=== PATIENT | female | born 1975 | race Caucasian/White ===

== ENCOUNTER 2019-04-26 15:08 | Emergency (ER) | payer MEDICARE ==
[2019-04-26 17:01] LABS: #Eosinphils 0.3 thou/uL (0.0-0.7); #Lymphocytes 2.4 thou/uL (1.20-3.40); #Monocytes 0.8 thou/uL (0.11-0.59); #Neutrophils 4.9 thou/uL (1.40-6.50); %Basophils 0.5 % (0.0-1.0); %Eosinophils 3.6 % (0.0-10.0); %Lymphocytes 28.2 % (21.0-51.0); %Monocytes 9.1 % (0.0-10.0); %Neutrophils 58.7 % (42.0-75.0); Hemoglobin 11.1 g/dL (12.0-16.0); Mean Corpuscular HGB CONC 30.8 g/dL (32.0-36.0); Mean Corpuscular Hemoglobin 19.2 pg (27.0-31.0); Mean Corpuscular Volume 62.4 fL (78.0-98.0); Mean Platelet Volume 7.1 fL (7.4-10.4); Platelet Count 553 thou/uL (130-400); RBC Distribution Width 15.2 % (11.5-14.5); Red Blood Cell (RBC) Count 5.76 mill/uL (4.20-5.40); White Blood Cell (WBC) Count 8.4 thou/uL (4.8-10.8)
[2019-04-26 17:23] LABS: ALT (SGPT) 23 U/L (8-55); AST (SGOT) 18 U/L (5-34); Albumin 3.7 g/dL (3.5-5.0); Alkaline Phosphatase 117 U/L (40-110); Anion Gap 9 mmol/L (10-20); BUN (Urea Nitrogen) 11 mg/dL (7.0-18.7); Bilirubin, Total 0.5 mg/dL (0.2-1.2); CRP (Inflammatory) 2.66 mg/dL (= or < 0.5); Calc. Creatinine Clearance 0 mL/min (70-130); Calcium 9.6 mg/dL (7.8-10.44); Carbon Dioxide 31 mmol/L (22-29); Chloride 103 mmol/L (98-107); Estimated GFR-MDRD 82; Globulin 4.1 g/dL (2.4-3.5); Glucose 96 mg/dL (70-105); Potassium 4.2 mmol/L (3.5-5.1); Protein, Total 7.8 g/dL (6.0-8.3); Sodium 139 mmol/L (136-145)
--- NOTE | 2019-04-26 17:24 | RAD ---
TWO VIEWS OF THE LEFT KNEE: 04/26/19 COMPARISON: 04/08/19. HISTORY: Left knee replacement with drainage and swelling from the incision site for four to five days. FINDINGS: Three views of the left knee shows the patient to be status post left knee arthroplasty without perih ardware lucency or fracture. The patient may also be status post ACL repair. Prepatellar soft tissue swelling is seen. No osseous erosions are seen No knee effusion is seen. IMPRESSION: Soft tissue swelling surrounding the patient's left knee prosthesis. POS: C
== END 2019-04-26 19:10 | disposition home or self-care (01) ==
LOC: ERS 15:08
DX: G89.18 Other acute postprocedural pain (principal); M25.562 Pain in left knee
CPT/HCPCS: 36415; 80053; 85025; 85652; 86140

== ENCOUNTER 2022-02-15 14:16 | Outpatient (CLI) | payer MEDICARE | END 2022-02-15 14:17 | disposition home or self-care (01) | LOC: SCSMRI 14:16 | PROVIDERS: ATTEND Physician Assistant | DX: M47.26 Other spondylosis with radiculopathy, lumbar region (principal) | CPT/HCPCS: 72148 ==

== ENCOUNTER 2022-03-31 13:36 | Outpatient (CLI) | payer MEDICARE ==
[2022-03-31 15:48] LABS: INR-International Normal Ratio 0.9; Prothrombin Time 10.3 sec (9.5-12.1)
[2022-03-31 15:58] LABS: Anion Gap 13 mmol/L (10-20); BUN (Urea Nitrogen) 12 mg/dL (7.0-18.7); Calc. Creatinine Clearance 0 mL/min (70-130); Calcium 8.7 mg/dL (7.8-10.44); Carbon Dioxide 28 mmol/L (22-29); Chloride 106 mmol/L (98-107); Estimated GFR 88; Glucose 134 mg/dL (70-105); Potassium 4.6 mmol/L (3.5-5.1); Sodium 142 mmol/L (136-145)
[2022-03-31 16:02] LABS: #Basophils 0.1 10x3/uL (0.0-0.2); #Eosinphils 0.2 10x3/uL (0.0-0.5); #Monocytes 0.6 10x3/uL (0.0-1.1); #Neutrophils 5.2 10x3/uL (1.5-8.4); %Basophils 0.8 % (0.0-2.0); %Eosinophils 2.4 % (0.0-6.0); %Lymphocytes 28.6 % (18.0-47.0); %Monocytes 7.3 % (0.0-10.0); %Neutrophils 60.7 % (40.0-75.0); Hemoglobin 11.7 g/dL (12.0-15.5); Mean Corpuscular HGB CONC 30.2 g/dL (32.0-36.0); Mean Corpuscular Volume 63.1 fl (81.6-98.3); Platelet Count 509 10x3/uL (150-450); RBC Distribution Width 18.2 % (11.5-14.5); Red Blood Cell (RBC) Count 6.15 10x6/uL (3.90-5.03); White Blood Cell (WBC) Count 8.6 10x3/uL (3.5-10.5)
[2022-03-31 17:40] LABS: Hypochromia SLIGHT = 6-15 cells (100X) (0-5/hpf); Microcytosis MODERATE=15-30 cells (100X) (0-5/hpf)
[2022-03-31 17:41] LABS: Tear Drops SLIGHT = 2-5 cells (100X) (0-1/hpf)
[2022-03-31 17:42] LABS: Ovalocytes SLIGHT = 2-5 cells (100X) (0-1/hpf)
[2022-03-31 17:47] LABS: Reflex for Review?? YES
== END 2022-03-31 13:37 | disposition home or self-care (01) ==
LOC: NM 13:36 → LABBT 13:37
PROVIDERS: ATTEND Orthopaedic Surgery
DX: Z01.818 Encounter for other preprocedural examination (principal); M17.11 Unilateral primary osteoarthritis, right knee
CPT/HCPCS: 80048; 85025; 85060; 85610; 87081; 93005; 93010

== ENCOUNTER 2022-04-04 05:31 | Observation (INO) | payer MEDICARE ==
[2022-04-03 12:14] VITALS: BMI 51.5
[2022-04-04] MEDS ORDERED: Tranexamic Acid 1,000 MG/10 ML VIAL ONE ×2 (06:01→09:20)
[2022-04-04] MEDS ORDERED: Sodium Chloride 0.9% 100 ML ONE ×2 (06:01→06:56)
[2022-04-04] MEDS ORDERED: fentaNYL PF 100 MCG/2 ML SYRINGE ONE ×3 (06:03→09:16)
[2022-04-04] MEDS ORDERED: VANCOMYCIN 2 GRAM/500 ML BAG 2 GM in Premix Bag 1 BAG IVPB SCH (06:15)
[2022-04-04] MEDS ORDERED: Bupivacaine PF 0.5% 30 ML VIAL ONE (06:23)
[2022-04-04] MEDS ORDERED: Midazolam HCl 2 mg/2 ml Vial ONE (06:44)
[2022-04-04] MEDS ORDERED: CEFAZOLIN 2 GM VIAL ONE (06:56)
[2022-04-04] MEDS ORDERED: HYDROcodone/Acetaminophen 10/325 mg Tablet PO PRN ×3 (06:59→09:00)
[2022-04-04] MEDS ORDERED: Acetaminophen 325 MG TAB PO PRN (06:59)
[2022-04-04] MEDS ORDERED: Promethazine HCl 25 MG/ML VIAL IM PRN ×2 (06:59→09:00)
[2022-04-04] MEDS ORDERED: Zolpidem Tartrate 5 MG TAB PO PRN ×2 (06:59→09:00)
[2022-04-04] MEDS ORDERED: Fentanyl 100 MCG/2 ML VIAL SLOW IVP PRN ×2 (06:59)
[2022-04-04] MEDS ORDERED: Ondansetron PF 4 MG/2 ML Vial IVP PRN ×2 (06:59→09:00)
[2022-04-04] MEDS ORDERED: diphenhydrAMINE 25 MG CAP PO PRN (06:59)
[2022-04-04] MEDS ORDERED: Rocuronium Bromide 10 MG/ML (10ML VIAL) ONE (07:00)
[2022-04-04] MEDS ORDERED: Glycopyrrolate 0.2 MG/ML 5 ML SYRINGE ONE (07:00)
[2022-04-04] MEDS ORDERED: NEOSTIGMINE 3 MG/3 ML SYR 3 MG/3 ML SYRINGE ONE (07:00)
[2022-04-04] MEDS ORDERED: PROPOFOL 200 MG/20 ML VIAL ONE (07:00)
[2022-04-04] MEDS ORDERED: Ondansetron ORAL SOLN. 4 MG/5 ML UDCUP ONE (07:00)
[2022-04-04] MEDS ORDERED: Dexamethasone 20 MG/5 ML VIAL ONE (07:00)
[2022-04-04] MEDS ORDERED: ePHEDrine 50 MG/ML VIAL ONE (07:00)
[2022-04-04] MEDS ORDERED: Ropivacaine 0.5% HCl/PF (150 MG/30 ML VIAL) ONE ×2 (07:00→08:10)
[2022-04-04] MEDS ORDERED: Ketorolac Tromethamine 30 MG/ML VIAL ONE (07:00)
[2022-04-04] MEDS ORDERED: Nitroglycerin 0.4 MG TAB (25 Tab Bottle) SL PRN (07:00)
[2022-04-04] MEDS ORDERED: Fentanyl 100 MCG/2 ML VIAL IV PRN (08:57)
[2022-04-04] MEDS ORDERED: traMADol HCl 50 MG TAB PO PRN ×2 (09:00)
[2022-04-04] MEDS ORDERED: Ropivacaine 0.2% 550 ML 550 ML NERVE BLCK SCH (09:00)
[2022-04-04] MEDS ORDERED: Dexamethasone 10 MG in Sodium Chloride 0.9% 50 ML IVPB SCH (09:00)
[2022-04-04] MEDS ORDERED: FENTANYL 50 MCG/ML 1 ML VIAL ONE (11:56)
[2022-04-04] MEDS: Sodium Chloride 0.9% 1,000 ML IV SCH ×2 (14:36→17:18)
[2022-04-04] MEDS: Multivitamin W/ Minerals 1 TAB PO SCH (14:37)
[2022-04-04] MEDS: Ferrous Gluconate 324 MG TAB PO SCH ×2 (14:37→21:32)
[2022-04-04] MEDS: Senokot S 8.6-50 MG TAB PO SCH ×2 (14:37→21:31)
[2022-04-04] MEDS: Aspirin 81 mg Enteric Coated Tablet PO SCH ×2 (14:37→21:34)
[2022-04-04] MEDS: Gabapentin 300 MG CAP PO SCH ×3 (14:37→21:29)
[2022-04-04] MEDS: Baclofen 10 MG TAB PO SCH ×2 (14:37→21:31)
[2022-04-04] MEDS: Ketorolac Tromethamine 30 MG/ML VIAL IVP SCH ×6 (14:37→23:50)
[2022-04-04] MEDS: Meloxicam 15 MG TAB PO SCH (14:37)
[2022-04-04] MEDS: Dexamethasone 10 MG/ML VIAL IVPB SCH (14:37)
[2022-04-04] MEDS: CEFAZOLIN 2 GM in Sodium Chloride 0.9% 100 ML IVPB SCH ×2 (15:56→23:51)
[2022-04-04] MEDS: HYDROcodone/Acetaminophen 10/325 mg Tablet PO PRN ×2 (15:56→22:46)
[2022-04-05] MEDS: Sodium Chloride 0.9% 1,000 ML IV SCH (04:25)
[2022-04-05] MEDS: Ketorolac Tromethamine 30 MG/ML VIAL IVP SCH (05:18)
[2022-04-05] MEDS ORDERED: Levothyroxine 150 MCG TAB PO SCH (06:00)
[2022-04-05 08:03] LABS: Hemoglobin 10.5 g/dL (12.0-16.0); Mean Corpuscular HGB CONC 30.1 g/dL (32.0-36.0); Mean Corpuscular Hemoglobin 19.6 pg (27.0-31.0); Mean Corpuscular Volume 65.3 fl (78.0-98.0); Mean Platelet Volume 7.2 fL (7.4-10.4); Platelet Count 389 10x3/uL (130-400); RBC Distribution Width 14.9 % (11.5-14.5); Red Blood Cell (RBC) Count 5.36 mill/uL (4.20-5.40); White Blood Cell (WBC) Count 13.9 10x3/uL (4.8-10.8)
[2022-04-05] MEDS: Aspirin 81 mg Enteric Coated Tablet PO SCH (08:54)
[2022-04-05] MEDS: Multivitamin W/ Minerals 1 TAB PO SCH (08:54)
[2022-04-05] MEDS: Meloxicam 15 MG TAB PO SCH (08:55)
[2022-04-05] MEDS: Gabapentin 300 MG CAP PO SCH (08:56)
[2022-04-05] MEDS: Ferrous Gluconate 324 MG TAB PO SCH (08:57)
[2022-04-05] MEDS: Baclofen 10 MG TAB PO SCH (08:57)
[2022-04-05] MEDS: Senokot S 8.6-50 MG TAB PO SCH (08:57)
[2022-04-05] MEDS: HYDROcodone/Acetaminophen 10/325 mg Tablet PO PRN (08:59)
[2022-04-05 09:22] VITALS: BP 106/70; TEMP 97.8
[2022-04-05] MEDS: Dexamethasone 10 MG/ML VIAL IVPB SCH (10:03)
== END 2022-04-05 10:00 | disposition home or self-care (01) ==
LOC: SDC 05:31 → SURG B 14:06
PROVIDERS: ADMIT Orthopaedic Surgery; ATTEND Orthopaedic Surgery
PROC: 0SRC0J9 Replacement of Right Knee Joint with Synthetic Substitute, Cemented, Open Approach (ICD-10-PCS; principal; 2022-04-04)
DX: M17.11 Unilateral primary osteoarthritis, right knee (principal); E89.0 Postprocedural hypothyroidism; D56.3 Thalassemia minor; Z79.1 Long term (current) use of non-steroidal anti-inflammatories (NSAID); Z79.890 Hormone replacement therapy; Z79.899 Other long term (current) drug therapy; Z96.652 Presence of left artificial knee joint
CPT/HCPCS: 20985; 27447; 73560; 85027; 97110 ×2; 97116 ×2; 97530 ×2; A4306; C1713; C1776; J3010; J3370; 36415; 96375; 96376; G0378; J1100; J1885; J2250; J2704; J2795; J3490; Q0162; S0020

== ENCOUNTER 2022-04-14 10:55 | Emergency (ER) | payer MEDICARE ==
[2022-04-14] MEDS ORDERED: Ketorolac Tromethamine 30 MG/ML VIAL ONE (11:52)
[2022-04-14] MEDS ORDERED: Ondansetron PF 4 MG/2 ML Vial ONE (11:52)
[2022-04-14] MEDS ORDERED: Morphine 4 MG/ML VIAL ONE (11:52)
[2022-04-14] MEDS ORDERED: cefTRIAXone\\ROCEPHIN 2 GM VIAL ONE (11:52)
[2022-04-14 12:10] LABS: #Eosinphils 0.2 thou/uL (0.0-0.7); #Monocytes 0.6 thou/uL (0.11-0.59); #Neutrophils 4.9 thou/uL (1.40-6.50); %Basophils 0.3 % (0.0-1.0); %Monocytes 7.7 % (0.0-10.0); %Neutrophils 63.1 % (42.0-75.0); Hemoglobin 11.1 g/dL (12.0-16.0); Mean Corpuscular HGB CONC 30.8 g/dL (32.0-36.0); Mean Corpuscular Hemoglobin 19.8 pg (27.0-31.0); Mean Corpuscular Volume 64.2 fl (78.0-98.0); Mean Platelet Volume 8.5 fL (7.4-10.4); Platelet Count 367 10x3/uL (130-400); RBC Distribution Width 15.1 % (11.5-14.5); Red Blood Cell (RBC) Count 5.62 mill/uL (4.20-5.40); White Blood Cell (WBC) Count 7.8 10x3/uL (4.8-10.8)
[2022-04-14 12:45] LABS: ALT (SGPT) 15 U/L (8-55); AST (SGOT) 29 U/L (5-34); Albumin 3.4 g/dL (3.5-5.0); Alkaline Phosphatase 77 U/L (40-110); Anion Gap 13 mmol/L (10-20); BUN (Urea Nitrogen) 15 mg/dL (7.0-18.7); Bilirubin, Total 0.6 mg/dL (0.2-1.2); Calc. Creatinine Clearance 0 mL/min (70-130); Calcium 8.4 mg/dL (7.8-10.44); Carbon Dioxide 24 mmol/L (22-29); Chloride 104 mmol/L (98-107); Estimated GFR 91; Globulin 3.7 g/dL (2.4-3.5); Glucose 137 mg/dL (70-105); Potassium 4.5 mmol/L (3.5-5.1); Protein, Total 7.1 g/dL (6.0-8.3); Sodium 136 mmol/L (136-145)
== END 2022-04-14 13:20 | disposition home or self-care (01) ==
LOC: ERS 10:55
DX: L03.115 Cellulitis of right lower limb (principal); E66.9 Obesity, unspecified
CPT/HCPCS: 36415; 80053; 83605; 85025; 86140; 87040; 96374; 96375; J0696; J1885; J2270; J2405

== ENCOUNTER 2024-12-15 07:54 | Day surgery (SDC) | payer MEDICARE ==
[2024-12-11 09:43] VITALS: BMI 42.7
[2024-12-15] MEDS ORDERED: Ropivacaine 0.5% HCl/PF (150 MG/30 ML VIAL) ONE (09:43)
[2024-12-15] MEDS ORDERED: fentaNYL PF 100 MCG/2 ML SYRINGE ONE (09:58)
[2024-12-15] MEDS ORDERED: Ondansetron PF 4 MG/2 ML Vial ONE ×2 (09:58→11:56)
[2024-12-15] MEDS ORDERED: Lidocaine 1% PF 5 ML VIAL ONE (09:58)
[2024-12-15] MEDS ORDERED: PROPOFOL 20 ML ONE (09:59)
[2024-12-15] MEDS ORDERED: CEFAZOLIN 2 GM VIAL ONE (11:00)
[2024-12-15] MEDS ORDERED: PHENYLEPHRINE-NS 100 MCG/ML 10 ML SYRINGE ONE (11:52)
[2024-12-15] MEDS ORDERED: Ketorolac Tromethamine 30 MG (1 mL) VIAL ONE (11:57)
[2024-12-15] MEDS ORDERED: Glycopyrrolate 0.2 MG/ML 5 ML SYRINGE ONE (12:35)
== END 2024-12-15 14:46 | disposition home or self-care (01) ==
LOC: SDC 07:54
PROVIDERS: ATTEND Orthopaedic Surgery
PROC: 01N54ZZ Release Median Nerve, Percutaneous Endoscopic Approach (ICD-10-PCS; principal; 2024-12-15)
PROC: 0RRS0JZ Replacement of Right Carpometacarpal Joint with Synthetic Substitute, Open Approach (ICD-10-PCS; 2024-12-15)
PROC: 3E0T3BZ Introduction of Anesthetic Agent into Peripheral Nerves and Plexi, Percutaneous Approach (ICD-10-PCS; 2024-12-15)
DX: G56.03 Carpal tunnel syndrome, bilateral upper limbs (principal); M18.0 Bilateral primary osteoarthritis of first carpometacarpal joints; Z96.653 Presence of artificial knee joint, bilateral; Z98.51 Tubal ligation status; Z90.710 Acquired absence of both cervix and uterus; Z98.890 Other specified postprocedural states; Z91.048 Other nonmedicinal substance allergy status; R20.0 Anesthesia of skin
CPT/HCPCS: 25447; 29848; 64415; 73140; 82962; A6223; C1713; J0166; J1100; J1885; J2250; J2405; J2704; J2795; J3010; 36416; 93005; 93010